=== PATIENT | female | born 1955 | race African-American/Black ===

== ENCOUNTER 2018-10-30 14:43 | Inpatient (IN) | payer MEDICARE ==
[~2018-10-30] VITALS: Ht 162.6 cm; Wt 63.5 kg
[2018-10-30] MEDS ORDERED: HYDROXYZINE HCL25 M1 PO (14:48)
[2018-10-30] MEDS ORDERED: EC-NAPROXEN375 MG PO (14:48)
[2018-10-30] MEDS ORDERED: OLANZAPINE ODT5 MG PO (14:48)
[2018-10-30] MEDS ORDERED: FLUOXETINE20 MG/5 ML ORAL (14:48)
--- NOTE | 2018-10-30 14:50 | Emergency Room Report ---
History of Present Illness General Chief Complaint: General Complaint Source: Patient, Medical Record, EMS Present Illness HPI Patient is a 63-year-old female sent from assisted living after increased agitation. Patient was noted to have been brought in by BLS ambulance. She had prior history of dementia.Patient was sent in for increased aggressive behavior. reportedly patient was requiring higher level of care than can be provided at her facility and was sent to the hospital for further evaluation. Allergies: Coded Allergies: No Known Allergies (Unverified , 10/30/18) Patient History Past Medical History: see triage record Reviewed Nursing Documentation: PMH: Agreed; PSxH: Agreed Nursing Documentation-PMH Past Medical History: No History, Except For Hx Hypertension: Yes Review of Systems All Other Systems: negative except mentioned in HPI Physical Exam Vital Signs Date Time Temp Pulse Resp B/P (MAP) Pulse Ox O2 Delivery O2 Flow Rate FiO2 10/30/18 14:39 97.9 86 16 159/97 96 Room Air Sp02 EP Interpretation: reviewed, normal General Appearance: normal inspection, well appearing, no apparent distress, alert, Chronically Ill Head: atraumatic ENT: normal ENT inspection, hearing grossly normal, normal voice Neck: normal inspection, full range of motion, supple, no bony tend Respiratory: normal inspection, lungs clear, normal breath sounds, no respiratory distress, no retraction, no wheezing Cardiovascular #1: regular rate, rhythm, no edema Gastrointestinal: normal inspection, normal bowel sounds, non tender, soft, no guarding, no hernia Genitourinary: no CVA tenderness Musculoskeletal: normal inspection, back normal, normal range of motion Neurologic: normal inspection, alert, responsive, acetone recovery worker III-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 Differential diagnosis included was not limited to anemia, urinary tract infection, electrolyte abnormality, hypothyroidism, myocardial infarction, myasthenia gravis, dehydration, among others. Because of complexity of patient' s case laboratory testing and imaging studies were ordered.Patient laboratory testing was unremarkable. Patient was noted to be somewhat confused. Patient' s baseline is unclear. CT of head read by radiology showed atrophic changes without evident acute CVA. Dr. Cem Hernandez was contacted for inpatient management due to panel physician. Patient is currently noted to be living in a assisted living will likely require adjustment of living situation upon discharge. Labs Test 10/30/18 15:00 10/30/18 15:45 White Blood Count 6.6 K/UL (4.8-10.8) Red Blood Count 5.13 M/UL (4.20-5.40) Hemoglobin 14.3 G/DL (12.0-16.0) Hematocrit 44.7 % (37.0-47.0) Mean Corpuscular Volume 87 FL (80-99) Mean Corpuscular Hemoglobin 27.9 PG (27.0-31.0) Mean Corpuscular Hemoglobin Concent 32.0 G/DL (32.0-36.0) Red Cell Distribution Width 13.0 % (11.6-14.8) Platelet Count 246 K/UL (150-450) Mean Platelet Volume 8.0 FL (6.5-10.1) Neutrophils (%) (Auto) 69.1 % (45.0-75.0) Lymphocytes (%) (Auto) 17.2 % (20.0-45.0) Monocytes (%) (Auto) 9.7 % (1.0-10.0) Eosinophils (%) (Auto) 2.0 % (0.0-3.0) Basophils (%) (Auto) 2.1 % (0.0-2.0) Sodium Level 141 MMOL/L (136-145) Potassium Level 3.6 MMOL/L (3.5-5.1) Chloride Level 103 MMOL/L (98-107) Carbon Dioxide Level 31 MMOL/L (21-32) Anion Gap 7 mmol/L (5-15) Blood Urea Nitrogen 12 mg/dL (7-18) Creatinine 0.7 MG/DL (0.55-1.30) Estimat Glomerular Filtration Rate > 60 mL/min (>60) Glucose Level 93 MG/DL (74-106) Calcium Level 10.1 MG/DL (8.5-10.1) Total Bilirubin 0.3 MG/DL (0.2-1.0) Aspartate Amino Transf (AST/SGOT) 18 U/L (15-37) Alanine Aminotransferase (ALT/SGPT) 23 U/L (12-78) Alkaline Phosphatase 53 U/L (46-116) Troponin I 0.000 ng/mL (0.000-0.056) Total Protein 8.1 G/DL (6.4-8.2) Albumin 4.7 G/DL (3.4-5.0) Globulin 3.4 g/dL Albumin/Globulin Ratio 1.4 (1.0-2.7) Thyroid Stimulating Hormone (TSH) 0.798 uiU/mL (0.358-3.740) Salicylates Level 0.6 ug/mL (2.8-20) Acetaminophen Level < 2 MCG/ML (10-30) Serum Alcohol < 3 mg/dL Urine Color Pale yellow Urine Appearance Clear Urine pH 7 (4.5-8.0) Urine Specific [place] 1.010 (1.005-1.035) Urine Protein Negative (NEGATIVE) Urine Glucose (UA) Negative (NEGATIVE) Urine Ketones Negative (NEGATIVE) Urine Blood Negative (NEGATIVE) Urine Nitrite Negative (NEGATIVE) Urine Bilirubin Negative (NEGATIVE) Urine Urobilinogen Normal MG/DL (0.0-1.0) Urine Leukocyte Esterase 2+ (NEGATIVE) Urine RBC 0-2 /HPF (0 - 2) Urine WBC 0-2 /HPF (0 - 2) Urine Squamous Epithelial Cells Few /LPF (NONE/OCC) Urine Bacteria Few /HPF (NONE) Urine Opiates Screen Negative (NEGATIVE) Urine Barbiturates Screen Negative (NEGATIVE) Phencyclidine (PCP) Screen Negative (NEGATIVE) Urine Amphetamines Screen Negative (NEGATIVE) Urine Benzodiazepines Screen Negative (NEGATIVE) Urine Cocaine Screen Negative (NEGATIVE) Urine Marijuana (THC) Screen Negative (NEGATIVE) Last Vital Signs Date Time Temp Pulse Resp B/P (MAP) Pulse Ox O2 Delivery O2 Flow Rate FiO2 10/30/18 14:39 97.9 86 16 159/97 96 Room Air Status: improved Disposition: HOME, SELF-CARE Condition: Stable Pedro Luis Lizama MD Oct 30, 2018 14:49
[2018-10-30 15:15] LABS: BASOPHILS % (AUTO) 2.1 % (0.0-2.0); HEMATOCRIT 44.7 % (37.0-47.0); HEMOGLOBIN 14.3 G/DL (12.0-16.0); LYMPHOCYTES % (AUTO) 17.2 % (20.0-45.0); MEAN CORPUSCULAR VOLUME 87 FL (80-99); MONOCYTES % (AUTO) 9.7 % (1.0-10.0); NEUTROPHILS % (AUTO) 69.1 % (45.0-75.0); PLATELET COUNT 246 K/UL (150-450); RED BLOOD COUNT 5.13 M/UL (4.20-5.40); WHITE BLOOD COUNT 6.6 K/UL (4.8-10.8)
[2018-10-30 15:26] VITALS: BP 133/83
[2018-10-30 15:26] LABS: ANION GAP 7 mmol/L (5-15); BLOOD UREA NITROGEN 12 mg/dL (7-18); CALCIUM 10.1 MG/DL (8.5-10.1); CARBON DIOXIDE 31 MMOL/L (21-32); CHLORIDE 103 MMOL/L (98-107); CREATININE 0.7 MG/DL (0.55-1.30); POTASSIUM 3.6 MMOL/L (3.5-5.1); SODIUM 141 MMOL/L (136-145)
[2018-10-30 15:38] LABS: ALANINE AMINOTRANSFERASE 23 U/L (12-78); ALBUMIN 4.7 G/DL (3.4-5.0); ALBUMIN/GLOBULIN RATIO 1.4 (1.0-2.7); ALKALINE PHOSPHATASE 53 U/L (46-116); ASPARTATE AMINO TRANSFERASE 18 U/L (15-37); BILIRUBIN,TOTAL 0.3 MG/DL (0.2-1.0)
[2018-10-30 16:16] LABS: APPEARANCE,URINE CLEAR; BILIRUBIN, URINE NEGATIVE (NEGATIVE); COLOR,URINE PALE YELLOW; GLUCOSE, URINE (UA) NEGATIVE (NEGATIVE); KETONES,URINE NEGATIVE (NEGATIVE); LEUKOCYTE ESTERASE ,URINE 2+ (NEGATIVE); NITRITE,URINE NEGATIVE (NEGATIVE); PH,URINE 7 (4.5-8.0); PROTEIN,URINE NEGATIVE (NEGATIVE); UROBILINOGEN,URINE NORMAL MG/DL (0.0-1.0)
[2018-10-30] MEDS ORDERED: NAPROXEN375 M2 ORAL (17:53)
[2018-10-30] MEDS ORDERED: FLUOXETINE HCL20 MG ORAL (17:53)
[2018-10-30] MEDS ORDERED: ZYPREXA2.5 MG ORAL (17:53)
[2018-10-30 18:26] VITALS: BP 128/71
[2018-10-30 20:00] VITALS: BP 169/93
[2018-10-30] MEDS ORDERED: HydrOXYzine tab 25mg tab ORAL PRN (21:15)
[2018-10-30] MEDS ORDERED: LORazepam 1mg tab ORAL PRN (21:15)
--- NOTE | 2018-10-30 21:49 | Initial Psychiatric Evaluation ---
Psychiatry Consultation Psychiatry Consultation Chief Complaint: General Complaint History of Present Illness: 63-year-old female who has mmp and dementia and depression the pt pw with depression, agitation, poor appetite, waxing and waning of consciousness. the pt has memory impairment and is confused. the pt is unable to provide any hx. the pt is easily agitated. Allergies: Coded Allergies: No Known Allergies (Unverified , 10/30/18) Past Psychiatric History: see problem list Medication History Scheduled Fluoxetine Hcl* (Fluoxetine Hcl*), 20 MG ORAL DAILY, (Reported) Naproxen* (Naproxen*), 375 MG ORAL TWICE A DAY, (Reported) Olanzapine* (Zyprexa*), 2.5 MG ORAL DAILY, (Reported) Scheduled PRN Hydroxyzine Hcl (Hydroxyzine Hcl), 25 MG PO PRN PRN for Itching, (Reported) Discontinued Medications Fluoxetine Hcl (Fluoxetine Hcl), 20 MG ORAL DAILY, (Reported) Discontinued Reason: Prescription changed Olanzapine (Olanzapine Odt), 2.5 MG PO DAILY, (Reported) Discontinued Reason: Prescription changed Patient History Limited by: medical condition History Provided By: Medical Record, PMD Objective Data Height (Feet): 5 Height (Inches): 4.00 Weight (Pounds): 140 Appearance: disheveled Behavior Mannerisms: poor eye contact Affect: flat Mood: depressed, anxious, agitated Speech: clear Thought Process: illogical Suicidal Ideation: not present Assessment/Plan Problem List: (1) Acute metabolic encephalopathy ICD Codes: G93.41 - Metabolic encephalopathy SNOMED: 88542934, 618449001 (2) MDD (major depressive disorder) ICD Codes: F32.9 - Major depressive disorder, single episode, unspecified SNOMED: 098535050 Assessment/Plan: prozac 20mg po qam zyprexa provided ro/Aquiles Grijalva MD Oct 30, 2018 21:49
[2018-10-30] MEDS: cefTRIAXone 1 GM in D5W 55 ML IVPB SCH (22:50)
[2018-10-31] VITALS: BP 139/89
--- NOTE | 2018-10-31 00:30 | History and Physical Report ---
DATE OF ADMISSION: 10/30/2018 HISTORY OF PRESENT ILLNESS: This is a 63-year-old female who came with severe depression, agitation, poor appetite, failure to thrive and placement. The patient denies any chest pain or palpitation. PAST MEDICAL HISTORY: Significant for hypertension and depression. MEDICATIONS: See the list. ALLERGIES: NKA. FAMILY HISTORY: Noncontributory. SOCIAL HISTORY: The patient lives at a board and care. The patient denies any smoking or drinking. PHYSICAL EXAMINATION: GENERAL: This is an elderly female, sitting in the bed comfortable. VITAL SIGNS: Blood pressure is 130/70, pulse 74, respirations 18, no fever. HEENT: NAD. CHEST: Bilaterally clear. CARDIOVASCULAR: Regular rhythm. ABDOMEN: Soft. EXTREMITIES: CCE. NEUROLOGICAL: Generalized weakness. GENITOURINARY: Deferred. ASSESSMENT: 1. Altered mental status. 2. Generalized weakness. 3. Dehydration. 4. History of depression. PLAN: We will consider psych consult. Add IV fluid and IV antibiotics, bronchodilator treatments, and continue psychotropics. Consider psych consult. Cem Hernandez M.D. DR: KI JOB#: [id number] CC:
[2018-10-31 04:00] VITALS: BP 109/75
[2018-10-31 08:00] VITALS: BP 125/84
[2018-10-31] MEDS ORDERED: 1/2 NS 1000ml IV ONE (08:39)
[2018-10-31] MEDS ORDERED: Tubing IV Secondary IV ONE (08:39)
[2018-10-31] MEDS: Naproxen 375mg tab ORAL SCH ×2 (08:50→17:47)
[2018-10-31] MEDS: OLANZapine 2.5mg tab ORAL SCH (08:50)
[2018-10-31 12:00] VITALS: BP 126/88
[2018-10-31 16:00] VITALS: BP 96/64
--- NOTE | 2018-10-31 19:15 | History and Physical Report ---
DATE OF ADMISSION: 10/30/2018 SUBJECTIVE: This is an elderly female sitting in the bed, slightly confused, and slightly agitating. OBJECTIVE: VITAL SIGNS: Blood pressure is stable 130/70, pulse 60s, and respirations 18. No fever. HEENT: NAD. CHEST: Bilaterally clear. CARDIOVASCULAR: Regular rhythm. ABDOMEN: Soft. EXTREMITIES: No CCE. NEUROLOGICAL: No focal deficit. ASSESSMENT: 1. Altered mental status. 2. Depression. 3. Hypertension. 4. Failure to thrive. PLAN: 1. We will admit on medical floor. 2. Consider psych consult. 3. spring salvage worker consult. 4. Continue IV fluid and antibiotics. Cem Hernandez M.D. DR: KRISTEN JOB#: [id number] CC:
[2018-10-31 20:00] VITALS: BP 110/62
[2018-10-31] MEDS: cefTRIAXone 1 GM in D5W 55 ML IVPB SCH (22:00)
--- NOTE | 2018-10-31 22:01 | Infectious Diseases Prog Note ---
Assessment/Plan Problems: (1) UTI (urinary tract infection) Assessment & Plan: continue ceftriaxone , send urine culture (2) Failure to thrive Assessment & Plan: recommend dietitian eval , screen for HIV and syphilis (3) Encephalopathy Assessment & Plan: metabolic, VS toxic, continue hydration and antibiotics Subjective Allergies: Coded Allergies: No Known Allergies (Unverified , 10/30/18) Objective Vital Signs Last 24 Hour Vital Signs Date Time Temp Pulse Resp B/P (MAP) Pulse Ox O2 Delivery O2 Flow Rate FiO2 10/31/18 20:00 98.6 80 18 110/62 (78) 94 10/31/18 18:22 97.9 10/31/18 16:00 97.9 80 18 96/64 (75) 96 10/31/18 12:00 97.5 83 20 126/88 (101) 96 10/31/18 09:00 Room Air 10/31/18 08:00 97.6 87 17 125/84 (98) 96 10/31/18 04:00 98.9 81 20 109/75 (86) 96 10/31/18 00:00 97.5 70 20 139/89 (106) 99 10/30/18 22:23 Room Air Height (Feet): 5 Height (Inches): 4.00 Weight (Pounds): 140 Current Medications Medications (Trade) Dose Ordered Sig/Bridgette Route PRN Reason Start Time Stop Time Status Last Admin Dose Admin Acetaminophen (Tylenol) 650 mg Q4H PRN ORAL Mild Pain/Temp > 100.5 10/30/18 21:15 11/29/18 21:14 Ceftriaxone Sodium 1 gm/ Dextrose 55 ml @ 110 mls/hr Q24H IVPB 10/30/18 22:30 11/06/18 22:29 10/30/18 22:50 Clonidine HCl (Catapres Tab) 0.1 mg Q6H PRN ORAL For High Blood Pressure 10/31/18 11:15 11/30/18 11:14 Fluoxetine HCl (PROzac) 20 mg DAILY ORAL 10/31/18 09:00 11/30/18 08:59 10/31/18 08:50 Hydroxyzine HCl (Atarax) 25 mg Q6H PRN ORAL Itching 10/30/18 21:15 11/29/18 21:14 Lorazepam (Ativan) 1 mg Q6H PRN ORAL For anxiety/agitation 10/30/18 21:15 11/06/18 21:14 Naproxen (Naprosyn) 375 mg TWICE A DAY ORAL 10/31/18 09:00 11/30/18 08:59 10/31/18 17:47 Olanzapine (ZyPREXA) 2.5 mg DAILY ORAL 10/31/18 09:00 11/30/18 08:59 10/31/18 08:50 Sodium Chloride 1,000 ml @ 75 mls/hr [id number] IV 10/31/18 22:00 11/29/18 21:59 10/30/18 22:50 Ivet Hidalgo M.D. Oct 31, 2018 22:01
[2018-11-01] VITALS: BP 125/78
[2018-11-01 04:00] VITALS: BP 145/80
[2018-11-01 08:00] VITALS: BP 143/92
[2018-11-01] MEDS: Naproxen 375mg tab ORAL SCH ×2 (09:26→18:48)
[2018-11-01] MEDS: OLANZapine 2.5mg tab ORAL SCH (09:26)
[2018-11-01 12:00] VITALS: BP 137/75
--- NOTE | 2018-11-01 12:36 | Psych Consult Progress Note ---
Psychiatry Progress Note Psychiatry Progress Note Subjective 10/31/18 Medications Current Medications Medications (Trade) Dose Ordered Sig/Bridgette Route PRN Reason Start Time Stop Time Status Last Admin Dose Admin Acetaminophen (Tylenol) 650 mg Q4H PRN ORAL Mild Pain/Temp > 100.5 10/30/18 21:15 11/29/18 21:14 Ceftriaxone Sodium 1 gm/ Dextrose 55 ml @ 110 mls/hr Q24H IVPB 10/30/18 22:30 11/06/18 22:29 10/31/18 22:00 Clonidine HCl (Catapres Tab) 0.1 mg Q6H PRN ORAL For High Blood Pressure 10/31/18 11:15 11/30/18 11:14 Fluoxetine HCl (PROzac) 20 mg DAILY ORAL 10/31/18 09:00 11/30/18 08:59 11/01/18 09:26 Hydroxyzine HCl (Atarax) 25 mg Q6H PRN ORAL Itching 10/30/18 21:15 11/29/18 21:14 Lorazepam (Ativan) 1 mg Q6H PRN ORAL For anxiety/agitation 10/30/18 21:15 11/06/18 21:14 Naproxen (Naprosyn) 375 mg TWICE A DAY ORAL 10/31/18 09:00 11/30/18 08:59 11/01/18 09:26 Olanzapine (ZyPREXA) 2.5 mg DAILY ORAL 10/31/18 09:00 11/30/18 08:59 11/01/18 09:26 Sodium Chloride 1,000 ml @ 75 mls/hr [id number] IV 10/31/18 22:00 11/29/18 21:59 10/31/18 22:00 Allergies: Coded Allergies: No Known Allergies (Unverified , 10/30/18) Objective Data Height (Feet): 5 Height (Inches): 4.00 Weight (Pounds): 140 General Appearance: alert, confused, agitated Behavior Mannerisms: poor eye contact Mental Status Exam - Affect: constricted Mental Status Exam - Mood: agitated Mental Status Exam - Thought P: illogical Mental Status Exam - Suicidal: not present Assessment/Plan Problem List: (1) Acute metabolic encephalopathy ICD Codes: G93.41 - Metabolic encephalopathy SNOMED: 39400651, 595759428 (2) MDD (major depressive disorder) ICD Codes: F32.9 - Major depressive disorder, single episode, unspecified SNOMED: 917433041 Status: unchanged Assessment/Plan: prozac 20mg po qam zyprexa provided ro/Aquiles Grijalva MD Nov 01, 2018 12:36
[2018-11-01 16:00] VITALS: BP 138/80
--- NOTE | 2018-11-01 17:08 | Consultation ---
History of Present Illness General Date patient seen: Oct 31, 2018 Time patient seen: 16:30 Chief Complaint: altered mental status Referring physician: Sumanth Ren Reason for Consultation: UTI Present Illness HPI Patient is a 63-year-old female was sent from assisted living for increased agitation. Patient was noted to have increasing confusion, increased aggressive behavior, and poor oral intake ,patient was requiring higher level of care than can be provided at her facility, so she was sent by BLS ambulance [place] [facility] [place] further evaluation and management . She had prior history of dementia with unclear baseline . her work up in ED revealed UTI , so she was started on ceftriaxone and an infectious disease consult was requested for antibiotics treatment and further management . Allergies: Coded Allergies: No Known Allergies (Unverified , 10/30/18) Medication History Scheduled Fluoxetine Hcl* (Fluoxetine Hcl*), 20 MG ORAL DAILY, (Reported) Naproxen* (Naproxen*), 375 MG ORAL TWICE A DAY, (Reported) Olanzapine* (Zyprexa*), 2.5 MG ORAL DAILY, (Reported) Scheduled PRN Hydroxyzine Hcl (Hydroxyzine Hcl), 25 MG PO PRN PRN for Itching, (Reported) Discontinued Medications Fluoxetine Hcl (Fluoxetine Hcl), 20 MG ORAL DAILY, (Reported) Discontinued Reason: Prescription changed Olanzapine (Olanzapine Odt), 2.5 MG PO DAILY, (Reported) Discontinued Reason: Prescription changed Patient History Limited by: medical condition, other History Provided By: Medical Record, EMS Healthcare decision maker Resuscitation status Full Code Advanced Directive on File Past Medical/Surgical History Past Medical/Surgical History: (1) MDD (major depressive disorder) (2) Failure to thrive Review of Systems ROS Narrative unable to obtain , she is poor historian and altered, can't provide any history Physical Exam General Appearance: WD/WN, no apparent distress, lethargic, confused Lines, tubes and drains: peripheral HEENT: normocephalic, atraumatic, anicteric, mucous membranes moist, PERRL Neck: non-tender, normal alignment, supple, normal inspection, abnormal alignment Respiratory/Chest: chest wall non-tender, lungs clear, normal breath sounds, no respiratory distress, no accessory muscle use Cardiovascular/Chest: normal peripheral pulses, normal rate, regular rhythm, no gallop/murmur, no JVD Abdomen: normal bowel sounds, non tender, soft, no organomegaly, no mass, abnormal bowel sounds Genitourinary/Rectal: normal genital exam Extremities: normal range of motion, non-tender, normal inspection, no calf tenderness, normal capillary refill Skin Exam: normal pigmentation, warm/dry Neurologic: disoriented, unresponsiveness Musculoskeletal: normal muscle bulk, no effusion Last 24 Hour Vital Signs Date Time Temp Pulse Resp B/P (MAP) Pulse Ox O2 Delivery O2 Flow Rate FiO2 11/01/18 12:00 97.9 84 18 137/75 (95) 95 11/01/18 09:56 97.4 11/01/18 09:00 Room Air 11/01/18 08:00 97.4 90 18 143/92 (109) 97 11/01/18 04:00 98.3 66 18 145/80 (101) 97 11/01/18 00:00 98.6 75 18 125/78 (94) 95 10/31/18 21:00 Room Air 10/31/18 20:00 98.6 80 18 110/62 (78) 94 Intake and Output 10/31/18 11/01/18 19:00 07:00 Intake Total 1125 ml 1041 ml Balance 1125 ml 1041 ml Intake Oral 300 ml IV Total 825 ml 805 ml Other 236 ml # Voids 1 3 # Bowel Movements 1 Height (Feet): 5 Height (Inches): 4.00 Weight (Pounds): 140 Medications Current Medications Medications (Trade) Dose Ordered Sig/Bridgette Route PRN Reason Start Time Stop Time Status Last Admin Dose Admin Acetaminophen (Tylenol) 650 mg Q4H PRN ORAL Mild Pain/Temp > 100.5 10/30/18 21:15 11/29/18 21:14 Ceftriaxone Sodium 1 gm/ Dextrose 55 ml @ 110 mls/hr Q24H IVPB 10/30/18 22:30 11/06/18 22:29 10/31/18 22:00 Clonidine HCl (Catapres Tab) 0.1 mg Q6H PRN ORAL For High Blood Pressure 10/31/18 11:15 11/30/18 11:14 Fluoxetine HCl (PROzac) 20 mg DAILY ORAL 10/31/18 09:00 11/30/18 08:59 11/01/18 09:26 Hydroxyzine HCl (Atarax) 25 mg Q6H PRN ORAL Itching 10/30/18 21:15 11/29/18 21:14 Lorazepam (Ativan) 1 mg Q6H PRN ORAL For anxiety/agitation 10/30/18 21:15 11/06/18 21:14 Naproxen (Naprosyn) 375 mg TWICE A DAY ORAL 10/31/18 09:00 11/30/18 08:59 11/01/18 09:26 Olanzapine (ZyPREXA) 2.5 mg DAILY ORAL 10/31/18 09:00 11/30/18 08:59 11/01/18 09:26 Sodium Chloride 1,000 ml @ 75 mls/hr [id number] IV 10/31/18 22:00 11/29/18 21:59 10/31/18 22:00 Assessment/Plan Problem List: (1) UTI (urinary tract infection) Assessment & Plan: continue ceftriaxone , send urine culture ICD Codes: N39.0 - Urinary tract infection, site not specified SNOMED: 65177538 Qualifiers: (2) Failure to thrive Assessment & Plan: recommend dietitian eval , screen for HIV and syphilis SNOMED: 27639975 (3) Encephalopathy Assessment & Plan: metabolic, VS toxic, continue hydration and antibiotics ICD Codes: G93.40 - Encephalopathy, unspecified SNOMED: 12577430 Ivet Hidalgo M.D. Nov 01, 2018 17:08
--- NOTE | 2018-11-01 18:52 | Psych Consult Progress Note ---
Psychiatry Progress Note Psychiatry Progress Note Subjective the pt is the same no changes since previous encounter. cont to be agitated and confused Medications Current Medications Medications (Trade) Dose Ordered Sig/Bridgette Route PRN Reason Start Time Stop Time Status Last Admin Dose Admin Acetaminophen (Tylenol) 650 mg Q4H PRN ORAL Mild Pain/Temp > 100.5 10/30/18 21:15 11/29/18 21:14 Ceftriaxone Sodium 1 gm/ Dextrose 55 ml @ 110 mls/hr Q24H IVPB 10/30/18 22:30 11/06/18 22:29 10/31/18 22:00 Clonidine HCl (Catapres Tab) 0.1 mg Q6H PRN ORAL For High Blood Pressure 10/31/18 11:15 11/30/18 11:14 Fluoxetine HCl (PROzac) 20 mg DAILY ORAL 10/31/18 09:00 11/30/18 08:59 11/01/18 09:26 Hydroxyzine HCl (Atarax) 25 mg Q6H PRN ORAL Itching 10/30/18 21:15 11/29/18 21:14 Lorazepam (Ativan) 1 mg Q6H PRN ORAL For anxiety/agitation 10/30/18 21:15 11/06/18 21:14 Naproxen (Naprosyn) 375 mg TWICE A DAY ORAL 10/31/18 09:00 11/30/18 08:59 11/01/18 18:48 Olanzapine (ZyPREXA) 2.5 mg DAILY ORAL 10/31/18 09:00 11/30/18 08:59 11/01/18 09:26 Allergies: Coded Allergies: No Known Allergies (Unverified , 10/30/18) Objective Data Height (Feet): 5 Height (Inches): 4.00 Weight (Pounds): 140 General Appearance: alert, confused, moderate distress, agitated Appearance: disheveled Behavior Mannerisms: poor eye contact Mental Status Exam - Mood: agitated Mental Status Exam - Thought P: illogical Mental Status Exam - Suicidal: not present Assessment/Plan Problem List: (1) Acute metabolic encephalopathy ICD Codes: G93.41 - Metabolic encephalopathy SNOMED: 43555649, 341282798 (2) MDD (major depressive disorder) ICD Codes: F32.9 - Major depressive disorder, single episode, unspecified SNOMED: 961040180 Status: unchanged Assessment/Plan: prozac 20mg po qam zyprexa provided ro/Aquiles Grijalva MD Nov 01, 2018 18:52
[2018-11-01 20:00] VITALS: BP 140/81
[2018-11-01] MEDS: cefTRIAXone 1 GM in D5W 55 ML IVPB SCH (22:34)
[2018-11-02] VITALS: BP 144/78
[2018-11-02 04:00] VITALS: BP 155/85
--- NOTE | 2018-11-02 05:00 | Progress Note ---
DATE: 11/01/2018 SUBJECTIVE: This is an elderly female, currently sitting in bed, and comfortable. Slightly confused, but doing better. OBJECTIVE: VITAL SIGNS: Blood pressure 138/80 and pulse 93. No fever. CHEST: Bilaterally clear. CARDIOVASCULAR: Regular rhythm. No gallop. No murmur. ABDOMEN: Soft. EXTREMITIES: CCE. NEUROLOGICAL: Generalized weakness. ASSESSMENT: 1. Confusion. 2. Altered mental status. 3. Depression. PLAN: We will currently continue current treatment. Continue clonidine, and Rocephin for antibiotics. Cem Hernandez M.D. DR: KRISTEN JOB#: [id number] CC:
[2018-11-02 08:00] VITALS: BP 118/70
[2018-11-02] MEDS: OLANZapine 2.5mg tab ORAL SCH (08:33)
[2018-11-02] MEDS: Naproxen 375mg tab ORAL SCH ×2 (08:33→17:08)
[2018-11-02 12:00] VITALS: BP 135/78
[2018-11-02] MEDS ORDERED: 1/2 NS 1000ml IV ONE (14:52)
[2018-11-02 16:00] VITALS: BP 114/85
--- NOTE | 2018-11-02 18:39 | Infectious Diseases Prog Note ---
Assessment/Plan Problems: (1) UTI (urinary tract infection) Assessment & Plan: stop ceftriaxone , urine culture grew contaminants (2) Failure to thrive Assessment & Plan: recommend dietitian eval , screening for HIV and syphilis is negative (3) Encephalopathy Assessment & Plan: metabolic, VS toxic, continue hydration and antibiotics Subjective Constitutional: Reports: no symptoms HEENT: Reports: no symptoms Respiratory: Reports: no symptoms Breasts: Reports: no symptoms Cardiovascular: Reports: no symptoms Gastrointestinal/Abdominal: Reports: no symptoms Genitourinary: Reports: no symptoms Neurologic: Reports: no symptoms Psychiatric: Reports: no symptoms Skin: Reports: no symptoms Endocrine: Reports: no symptoms Hematologic: Reports: no symptoms Musculoskeletal: Reports: no symptoms Allergies: Coded Allergies: No Known Allergies (Unverified , 10/30/18) Objective Vital Signs Last 24 Hour Vital Signs Date Time Temp Pulse Resp B/P (MAP) Pulse Ox O2 Delivery O2 Flow Rate FiO2 11/02/18 16:00 98.5 83 19 114/85 (95) 96 11/02/18 12:00 98.2 80 19 135/78 (97) 96 11/02/18 09:00 Room Air 11/02/18 08:00 98.0 80 19 118/70 (86) 95 11/02/18 05:25 176/92 11/02/18 04:00 98.1 75 17 155/85 (108) 96 11/02/18 00:00 98.3 97 18 144/78 (100) 95 11/01/18 21:00 Room Air 11/01/18 20:00 98.6 93 17 140/81 (100) 95 11/01/18 19:18 98.3 Height (Feet): 5 Height (Inches): 4.00 Weight (Pounds): 140 General Appearance: WD/WN, no acute distress HEENT: normocephalic, atraumatic, anicteric, mucous membranes moist, PERRL Respiratory/Chest: chest wall non-tender, lungs clear, normal breath sounds, no respiratory distress, no accessory muscle use Cardiovascular: normal peripheral pulses, normal rate, regular rhythm, no gallop/murmur, no JVD Abdomen: normal bowel sounds, soft, non tender, no organomegaly, non distended , no mass, no scars Genitourinary: normal external genitalia Extremities: no cyanosis, no clubbing Skin: no rash, no lesions Neurologic/Psychiatric: chocolate coater II-XII grossly normal, no motor/sensory deficits, alert, responsive Lymphatic: no neck adenopathy, no groin adenopathy Musculoskeletal: normal muscle bulk, no effusion Microbiology Date/Time Source Procedure Growth Status 11/01/18 05:00 Straight Cath Urine Culture - Preliminary Gram Negative Dontrell Resulted 10/30/18 19:00 Rectum VRE Culture - Final NO VANCOMYCIN RESISTANT ENTEROCOCCUS ... Complete 10/30/18 19:00 Rectum - Final NO CARBAPENEM-RESISTANT ENTEROBACTERI... Complete Current Medications Medications (Trade) Dose Ordered Sig/Bridgette Route PRN Reason Start Time Stop Time Status Last Admin Dose Admin Acetaminophen (Tylenol) 650 mg Q4H PRN ORAL Mild Pain/Temp > 100.5 10/30/18 21:15 11/29/18 21:14 Ceftriaxone Sodium 1 gm/ Dextrose 55 ml @ 110 mls/hr Q24H IVPB 10/30/18 22:30 11/06/18 22:29 11/01/18 22:34 Clonidine HCl (Catapres Tab) 0.1 mg Q6H PRN ORAL For High Blood Pressure 10/31/18 11:15 11/30/18 11:14 11/02/18 05:25 Fluoxetine HCl (PROzac) 20 mg DAILY ORAL 10/31/18 09:00 11/30/18 08:59 11/02/18 08:32 Hydroxyzine HCl (Atarax) 25 mg Q6H PRN ORAL Itching 10/30/18 21:15 11/29/18 21:14 Lorazepam (Ativan) 1 mg Q6H PRN ORAL For anxiety/agitation 10/30/18 21:15 11/06/18 21:14 Naproxen (Naprosyn) 375 mg TWICE A DAY ORAL 10/31/18 09:00 11/30/18 08:59 11/02/18 17:08 Olanzapine (ZyPREXA) 2.5 mg DAILY ORAL 10/31/18 09:00 11/30/18 08:59 11/02/18 08:33 Ivet Hidalgo M.D. Nov 02, 2018 18:39
[2018-11-02 20:00] VITALS: BP 163/76
--- NOTE | 2018-11-02 22:19 | Psych Consult Progress Note ---
Psychiatry Progress Note Psychiatry Progress Note Medications Current Medications Medications (Trade) Dose Ordered Sig/Bridgette Route PRN Reason Start Time Stop Time Status Last Admin Dose Admin Acetaminophen (Tylenol) 650 mg Q4H PRN ORAL Mild Pain/Temp > 100.5 10/30/18 21:15 11/29/18 21:14 Clonidine HCl (Catapres Tab) 0.1 mg Q6H PRN ORAL For High Blood Pressure 10/31/18 11:15 11/30/18 11:14 11/02/18 05:25 Fluoxetine HCl (PROzac) 20 mg DAILY ORAL 10/31/18 09:00 11/30/18 08:59 11/02/18 08:32 Hydroxyzine HCl (Atarax) 25 mg Q6H PRN ORAL Itching 10/30/18 21:15 11/29/18 21:14 Lorazepam (Ativan) 1 mg Q6H PRN ORAL For anxiety/agitation 10/30/18 21:15 11/06/18 21:14 Naproxen (Naprosyn) 375 mg TWICE A DAY ORAL 10/31/18 09:00 11/30/18 08:59 11/02/18 17:08 Olanzapine (ZyPREXA) 2.5 mg DAILY ORAL 10/31/18 09:00 11/30/18 08:59 11/02/18 08:33 Neurological/Psychiatric: Reports: anxiety, emotional problems Allergies: Coded Allergies: No Known Allergies (Unverified , 10/30/18) Objective Data Height (Feet): 5 Height (Inches): 4.00 Weight (Pounds): 140 General Appearance: alert, confused, agitated Appearance: disheveled Behavior Mannerisms: poor eye contact Mental Status Exam - Affect: blunted Mental Status Exam - Mood: anxious, agitated Mental Status Exam - Thought P: tangential, confusion, disorganized Mental Status Exam - Thought C: delusions (specify) Perceptual Disturbances: hallucinations Mental Status Exam - Suicidal: not present Assessment/Plan Problem List: (1) Acute metabolic encephalopathy ICD Codes: G93.41 - Metabolic encephalopathy SNOMED: 58263776, 553881039 (2) MDD (major depressive disorder) ICD Codes: F32.9 - Major depressive disorder, single episode, unspecified SNOMED: 120188301 Status: unchanged Assessment/Plan: prozac 20mg po qam zyprexa provided ro/st Farhadi,Pantea MD Nov 02, 2018 22:19
--- NOTE | 2018-11-02 22:30 | Progress Note ---
DATE: 11/02/2018 SUBJECTIVE: This is an elderly female, sitting in the bed, comfortable, slightly confused, but improving. OBJECTIVE: VITAL SIGNS: Stable. CHEST: Bilaterally clear. CARDIOVASCULAR: Regular rhythm. ABDOMEN: Soft. ASSESSMENT: 1. Altered mental status. 2. Dehydration. 3. Urinary tract infection. 4. Psychosis. PLAN: 1. Continue behavior therapy. Psych is on consult. 2. Discontinue IV fluids. 3. Discharge plan to SNF. Cem Hernandez M.D. DR: KRISTEN JOB#: [id number] CC:
[2018-11-03] VITALS: BP 141/79
[2018-11-03 04:00] VITALS: BP 154/69
[2018-11-03 08:00] VITALS: BP 130/90
[2018-11-03] MEDS: OLANZapine 2.5mg tab ORAL SCH (08:54)
[2018-11-03] MEDS: Naproxen 375mg tab ORAL SCH (08:54)
[2018-11-03 12:00] VITALS: BP 134/83
--- NOTE | 2018-11-03 17:03 | Infectious Diseases Prog Note ---
Assessment/Plan Problems: (1) UTI (urinary tract infection) Assessment & Plan: monitor off antibiotics , urine culture grew contaminants (2) Failure to thrive Assessment & Plan: recommend dietitian eval , screening for HIV and syphilis is negative (3) Encephalopathy Assessment & Plan: metabolic, VS toxic, resolved, avoid sedatives Subjective Constitutional: Reports: no symptoms HEENT: Reports: no symptoms Respiratory: Reports: no symptoms Breasts: Reports: no symptoms Cardiovascular: Reports: no symptoms Gastrointestinal/Abdominal: Reports: no symptoms Genitourinary: Reports: no symptoms Neurologic: Reports: no symptoms Psychiatric: Reports: no symptoms Skin: Reports: no symptoms Endocrine: Reports: no symptoms Hematologic: Reports: no symptoms Musculoskeletal: Reports: no symptoms Allergies: Coded Allergies: No Known Allergies (Unverified , 10/30/18) Objective Vital Signs Last 24 Hour Vital Signs Date Time Temp Pulse Resp B/P (MAP) Pulse Ox O2 Delivery O2 Flow Rate FiO2 11/03/18 12:00 98.5 88 16 134/83 (100) 98 11/03/18 09:24 97.6 11/03/18 09:00 Room Air 11/03/18 08:00 98.2 75 16 130/90 (103) 98 11/03/18 04:00 97.6 67 16 154/69 (97) 96 11/03/18 00:00 97.6 69 17 141/79 (99) 97 11/02/18 21:00 Room Air 11/02/18 20:00 97.6 63 18 163/76 (105) 97 Height (Feet): 5 Height (Inches): 4.00 Weight (Pounds): 140 General Appearance: WD/WN, no acute distress HEENT: normocephalic, atraumatic, anicteric, mucous membranes moist, PERRL, EOMI, pharynx normal, supple, no JVD Respiratory/Chest: chest wall non-tender, lungs clear, normal breath sounds, no respiratory distress, no accessory muscle use Cardiovascular: normal peripheral pulses, normal rate, regular rhythm, no gallop/murmur, no JVD Abdomen: normal bowel sounds, soft, non tender, no organomegaly, non distended , no mass, no scars Extremities: no cyanosis, no clubbing Skin: no rash, no lesions, no ulcers 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 November 03, 2018 17:03
--- NOTE | 2018-11-03 21:30 | Progress Note ---
DATE: 11/03/2018 SUBJECTIVE: This is an elderly female, currently in bed, confused. Mood is much better. OBJECTIVE: VITAL SIGNS: Stable. CHEST: Bilaterally clear. CARDIOVASCULAR: Regular rhythm. ABDOMEN: Soft. HOSPITAL COURSE: The patient is currently in the bed. . The patient is depressed, but she is doing fine. Psych consult was obtained. Also, she received physical therapy. The patient is going to be discharged to senior living. DIET: She is on 2 g sodium diet. ACTIVITY: . The patient is going to go to senior living. Cem Hernandez M.D. DR: ELVIS JOB#: [id number] CC:
--- NOTE | 2018-11-03 22:37 | Psych Consult Progress Note ---
Psychiatry Progress Note Psychiatry Progress Note Neurological/Psychiatric: Reports: anxiety, depressed, emotional problems Allergies: Coded Allergies: No Known Allergies (Unverified , 10/30/18) Objective Data Height (Feet): 5 Height (Inches): 4.00 Weight (Pounds): 140 General Appearance: WD/WN, no apparent distress, alert, confused, agitated Appearance: no abnormalities noted Behavior Mannerisms: poor eye contact Mental Status Exam - Affect: blunted Mental Status Exam - Mood: anxious, agitated Speech: clear Mental Status Exam - Thought P: tangential, confusion, disorganized Mental Status Exam - Suicidal: not present Assessment/Plan Problem List: (1) Acute metabolic encephalopathy ICD Codes: G93.41 - Metabolic encephalopathy SNOMED: 23601368, 723627371 (2) MDD (major depressive disorder) ICD Codes: F32.9 - Major depressive disorder, single episode, unspecified SNOMED: 594637849 Status: unchanged Assessment/Plan: prozac 20mg po qam zyprexa provided ro/Aquiles Grijalva MD November 03, 2018 22:37
--- NOTE | 2018-11-04 12:26 | Discharge Summary ---
Discharge Summary Discharge Summary _ DATE OF ADMISSION: 10/30/2018 DATE OF DISCHARGE: 11/03/2018 DISCHARGED BY: Dr. Cem Hernandez CONSULTANTS: Dr. Ivet Krishnamurthy BRIEF HOSPITAL COURSE: Patient is a 63-year-old female, who presented to ED after patient was sent from assisted living due to increased agitation. Patient was brought in by a BLS ambulance. She had a prior history of dementia. Patient had increase aggressive behavior. Reportedly patient was requiring higher level of care that can be provided at the assisted living. She was sent to the hospital for further evaluation. On evaluation at the ED, blood pressure was 159/97 pulse rate 86. Blood work did not show any leukocytosis, hemoglobin and hematocrit were stable. Electrolytes were normal. Troponin was negative. Urinalysis showed 2+ leukocyte esterase, 0-2 RBC, 0-2 WBC. Urine toxicology screen was negative. Serum alcohol, acetaminophen and salicylates were negative. She had a head CT that showed atrophic changes without evidence of acute CVA. She was then admitted for evaluation of encephalopathy. Psychiatrist was consulted. Patient had waxing and waning of consciousness. Patient was confused and was easily agitated. She was diagnosed with acute metabolic encephalopathy and major depression. She was given Prozac and Zyprexa. ID was consulted for evaluation of UTI. She was started empirically on ceftriaxone pending culture results. She was noted to have failure to thrive. Screening for HIV and syphilis were negative. She was given IV hydration. Urine culture showed growth of Pseudomonas and diphtheroids with low counts, possible contaminants. Antibiotics were discontinued. Patient was unable to go back to prior living situation. Patient was then transferred to SNF. FINAL DIAGNOSES: Acute metabolic encephalopathy Major depressive disorder Urinary tract infection Failure to thrive DISPOSITION: Patient was discharged to a SNF. DISCHARGE MEDICATIONS: Refer to Discharge Medication List. I have been assigned to complete a discharge summary on this account, I was not involved with the patient's management. Danyelle Gardner NP November 04, 2018 12:26
== END 2018-11-03 15:20 | DRG 71 ==
LOC: EDBD 14:43 → EMR 15:30 → 3E 16:00 → EDBEDREQTM 18:53 → EDBEDREQ 18:54 → 3E 10-31 15:53
DX: G93.41 Metabolic encephalopathy (principal); F03.91 Unspecified dementia, unspecified severity, with behavioral disturbance; F05 Delirium due to known physiological condition; N39.0 Urinary tract infection, site not specified; F32.9 Major depressive disorder, single episode, unspecified; I10 Essential (primary) hypertension; F03.90 Unspecified dementia, unspecified severity, without behavioral disturbance, psychotic disturbance, mood disturbance, and anxiety; R62.7 Adult failure to thrive; F29 Unspecified psychosis not due to a substance or known physiological condition; E86.0 Dehydration
CPT/HCPCS: 36415; 70450; 80053; 80307; 80329; 81003; 84443; 84484; 85025; 86592; 86703; 87081; 87086; 87181; 99285